=== PATIENT | male | born 1995 | race Caucasian/White ===

== ENCOUNTER 2017-03-07 19:11 | Emergency (ER) | payer OTHER ==
[~2017-03-07] VITALS: Ht 177.8 cm; Wt 88.5 kg
[2017-03-07 20:41] VITALS: BP 128/76
[2017-03-07] MEDS ORDERED: IBUPROFEN 600 MG TAB PO ONE (22:30)
[2017-03-07] MEDS ORDERED: BACLOFEN 10 MG TAB PO ONE (22:30)
== END 2017-03-07 23:27 | disposition home or self-care (01) ==
LOC: ER 19:11
DX: S16.1XXA Strain of muscle, fascia and tendon at neck level, initial encounter (principal); S46.819A Strain of other muscles, fascia and tendons at shoulder and upper arm level, unspecified arm, initial encounter; S39.012A Strain of muscle, fascia and tendon of lower back, initial encounter; R51 Headache; V49.49XA Driver injured in collision with other motor vehicles in traffic accident, initial encounter; Y93.89 Activity, other specified; Y99.8 Other external cause status; Y92.410 Unspecified street and highway as the place of occurrence of the external cause
CPT/HCPCS: 70450; 72125; 72131

== ENCOUNTER 2021-08-13 09:41 | Emergency (ER) | payer MEDICAID, OTHER ==
[~2021-08-13] VITALS: Ht 177.8 cm; Wt 95.3 kg
[2021-08-13 09:58] VITALS: BP 132/92
[2021-08-13] MEDS ORDERED: KETOROLAC TROMETH 60MG/2ML VIAL IM ONE (10:15)
[2021-08-13] MEDS ORDERED: IBUP800T27 PO (11:00)
== END 2021-08-13 11:07 | disposition home or self-care (01) ==
LOC: ER 09:50
DX: S93.601A Unspecified sprain of right foot, initial encounter (principal); Z79.1 Long term (current) use of non-steroidal anti-inflammatories (NSAID); X58.XXXA Exposure to other specified factors, initial encounter; Y93.89 Activity, other specified; Y92.89 Other specified places as the place of occurrence of the external cause; Y99.8 Other external cause status
CPT/HCPCS: 73630; 96372; 99283; J1885